=== PATIENT | female | born 1945 | race Two or more races ===

== ENCOUNTER 2023-01-20 10:13 | Emergency (ER) | payer OTHER ==
[~2023-01-20] VITALS: Ht 160 cm; Wt 63.0 kg
[~2023-01-20 10:13] MED LIST: PREMARIN1.25 MG
[2023-01-20] MEDS ORDERED: MIDAZOLAM10 MG/2 M3 (10:40)
[2023-01-20] MEDS ORDERED: VITAMIN B-121000 MC4 (10:41)
== END 2023-01-20 12:05 | disposition home or self-care (01) ==
LOC: ER 10:13
DX: T42.4X1A Poisoning by benzodiazepines, accidental (unintentional), initial encounter (principal); R41.0 Disorientation, unspecified; Y92.018 Other place in single-family (private) house as the place of occurrence of the external cause; Z88.0 Allergy status to penicillin; Z88.2 Allergy status to sulfonamides; I10 Essential (primary) hypertension